=== PATIENT | female | born 1955 | race Caucasian/White ===

== ENCOUNTER 2016-09-03 17:55 | Emergency (ER) | payer MEDICARE ==
[2016-09-03 18:27] LABS: BASO # 0.1 10_X3_uL (0.0-0.1); BASO % 0.9 % (0.1-1.2); EOS # 0.2 10_X3_uL (0.0-0.4); GRAN # 2.7 10_X3_uL (1.6-6.1); GRAN % 46.6 % (34.0-71.1); HEMATOCRIT 40.9 % (34-45); HEMOGLOBIN 13.4 g/dL (11.2-15.7); LYMPH # 2.3 10_X3_uL (1.2-3.7); LYMPH % 40.3 % (19.3-51.7); MEAN CORPUSCULAR HEMOGLOBIN 27.5 pg (27.0-33.0); MEAN CORPUSCULAR HGB CONC 32.8 g/dL (32.0-36.0); MEAN PLATELET VOLUME 8.6 fl (7.5-11.5); MONO # 0.5 10_X3_uL (0.2-0.9); MONO % 9.2 % (4.7-12.5); PLATELET COUNT 237 x10_3/uL (182-369); RED BLOOD COUNT 4.87 x10_6/uL (3.9-5.2); RED CELL DISTRIBUTION WIDTH 16.8 % (11.7-14.4); WHITE BLOOD COUNT 5.8 x10_3/uL (4.0-10.0)
== END 2016-09-03 22:26 | disposition home or self-care (01) ==
LOC: ER 17:55
PROVIDERS: General Practice
DX: M25.552 Pain in left hip (principal); G89.29 Other chronic pain; I10 Essential (primary) hypertension; Z79.899 Other long term (current) drug therapy
CPT/HCPCS: 36415; 73700; 85025; 99283-25; 99284